=== PATIENT | female | born 1960 | race Hispanic/Latino ===

== ENCOUNTER 2016-09-27 20:17 | Emergency (ER) | payer MEDICAID, MEDICARE ==
[~2016-09-27] VITALS: Ht 162.6 cm; Wt 75.0 kg
[~2016-09-27 20:17] MED LIST: FLUO10CA20 PO; LEVE500T76 PO; NPR250T1 PO; TRAZ50TA52 PO
[2016-09-27 20:32] VITALS: BP 115/61; PULSE 70; RESP 13; O2SAT 96
--- NOTE | 2016-09-27 20:35 | ED.REPORT ---
HPI-General Illness Date of Service September 27, 2016 ED Provider: Aaron Chatman MD Pt is a 56 y/o female w/ a hx of seizure disorder presenting to the ED via EMS due to seizure which occurred prior to arrival. The seizure today was different than normal because this episode lasted almost 30 minutes, her entire body was shaking. The seizure was similar in appearance to previous seizures though seemed to last longer. She normally takes Levetiracetam 500 mg BID but did not take it this morning because she ran out. She was unresponsive during the episode and was post-ictal afterwards. She is currently GCS 15 with only complaint of headache. Family members state that when they were carrying her to the car in her postictal state that they may have dropped her causing her to strike her head on the sidewalk. Nursing Notes Stated Complaint: SEIZURE Chief Complaint: Seizure Nursing Notes Reviewed: Yes Allergies: Coded Allergies: No Known Allergies (Unverified Allergy, Unknown, 08/23/15) Scheduled Fluoxetine (Fluoxetine) 10 Mg Capsule 10 MG PO DAILY Levetiracetam (Levetiracetam) 500 Mg Tab.er.24h 500 MG PO BID Levetiracetam (Levetiracetam) 500 Mg/5 Ml Solution 500 MG PO BID Naproxen-Expunged Drug, Do Not Renew! (Naprosyn-Expunged Drug, Do Not Renew!) 250 Mg Tab 250 MG PO PRN Trazodone-Expunged Drug, Do Not Renew! (Trazodone-Expunged Drug, Do Not Renew!) 50 Mg Tablet 50 MG PO HS General Time Seen by MD: 20:20 Chief Complaint Seizure Hx Obtained From: Patient, EMS Arrived By: Ambulance Sudden in Onset?: Yes Onset Occurred: Just prior to arrival Symptom Duration: 16 - 30 minutes Location: : Head Quality: Aching Severity: Current: Mild Severity: Maximum: Moderate Past Medical History Past Medical History Notes: Melinda Santiago (Neuro) Dr. Mark Dorantes (Neuro, most recent) Past Medical History seizures (started 2013) Past Surgical History Right knee surgery Family History Reviewed, not relevant Smoking History Never Smoker Social History Alcohol Use: Denies alcohol use Drug Use: Denies drug use Ambulatory Status Independent Review of Systems Full Review of Systems Constitutional: Denies: Chills, Fever Respiratory: Denies: Non-productive cough, Shortness of breath Cardiovascular: Denies: Chest pain, Dyspnea on exertion Neurologic: Reports: Headache, Seizure, Denies: Focal weakness, Numbness Complete sys rev & neg: except as marked. Physical Exam Vital Signs Vital Signs Date Time Temp Pulse Resp B/P Pulse Ox O2 Delivery O2 Flow Rate FiO2 09/27/16 23:17 36.3 78 18 122/60 98 Room Air 09/27/16 21:32 78 18 122/60 98 Room Air 09/27/16 20:32 36.3 70 13 115/61 96 Room Air Initial VS: Reviewed, Vital signs normal Head / Eyes: Atraumatic, Normocephalic, PERRL ENT: Mucous membranes moist, Conjunctiva normal, No scleral icterus Neck: Supple, Full range of motion Respiratory: Breath sounds normal, Clear to auscultation, No respiratory distress Cardiovascular: Regular rate & rhythm, Heart sounds normal, Intact distal pulses Abdomen / GI: Soft, Non-tender, No guarding, No rebound, No distention Extremities: Vascular intact, Neuro intact, No swelling, No tenderness Skin: Warm, Dry, No cyanosis Psychiatric: Mood/affect normal, Behavior normal, Normal thought content General/Constitutional: Awake, Alert, No acute distress, Cooperative, Not toxic appearing Neurologic: Oriented X3, Speech NL, No motor deficits, No sensory deficits, CN II - XII intact, Cerebellar NL, Memory NL, Gait NL Interpretation & Diagnostics CT Head Interpretation No acute intracranial abnormality Re-Eval/Medical Decision Med Decision/Clinical Course Pt is a 56 y/o female w/ a hx of seizure disorder presenting to the ED via EMS due to seizure which occurred prior to arrival. The seizure today was different than normal because this episode lasted almost 30 minutes, her entire body was shaking. The seizure was similar in appearance to previous seizures though seemed to last longer. She normally takes Levetiracetam 500 mg BID but did not take it this morning because she ran out. She was unresponsive during the episode and was post-ictal afterwards. She is currently GCS 15 with only complaint of headache. Family members state that when they were carrying her to the car in her postictal state that they may have dropped her causing her to strike her head on the sidewalk. Here in the emergency department the patient is afebrile with stable vital signs and in no apparent distress. She is completely neurologically intact without any evidence of significant head trauma. Blood glucose is within normal limits. Head CT demonstrate no acute intracranial process. I gave her her normal dose of levetiracetam. She was monitored for several hours and demonstrated no ongoing or recurrent seizure activity. Given that her seizure occurred in the setting of not taking her anti -epileptic medications I suspect that medication noncompliance is the cause of her seizure today. There is no physical exam evidence or history suggestive of acute bacterial meningitis or encephalitis. I do not feel that further workup is immediately indicated. Patient has known seizure history with breakthrough seizure in the setting of not taking her meds. I prescribed her 30 day supply of her levetiracetam and advised her to follow-up with her physician and neurologist. At this time, she is at her baseline state and I feel that she is appropriate for discharge. Prior to discharge follow-up and return precautions were reviewed in detail with the patient who verbalized understanding and agreement with the plan. The patient was discharged in stable condition. Time of Eval: 23:04 Patient Status: Condition resolved, Complete relief Evaluation: Mental status normal, Neurologic nonfocal Re-Evaluation/Progress Note: Pt rechecked. Informed pt of plan for treatment. Pt understands and agrees with plan for treatment. F/U instructions and RTER warnings given. All questions addressed. Counseled Regarding: Diagnosis, Lab results, Need for follow-up, When/why to return to ED Discharge & Departure Primary Impression: Seizure Additional Impressions: Noncompliance with medication regimen Head trauma Encounter type: initial encounter Qualified Code: S09.90XA - Unspecified injury of head, initial encounter Headache Headache type: unspecified Headache chronicity pattern: unspecified pattern Intractability: not intractable Qualified Code: R51 - Headache Disposition: Home Discharge Condition All VS Reviewed: Yes Condition: Stable Patient Instructions: Recurrent Seizures in Adults (ED) Additional Instructions: Thank you for seeking care at the emergency room. It is difficult for us to make definitive diagnoses in the ED but we believe that you are experiencing a seizure related to not taking the seizure medication. Our primary goal today in the ED was to evaluate you for any life-threatening conditions. Your evaluation was reassuring. The CT scan of your head was normal. You will be discharged with a prescription for 30 days of your seizure medication. Take these as directed and have them refilled by your primary care doctor or neurologist in the future. You should follow-up with your primary doctor and neurologist in the next week. You should return to the ED immediately if you develop fever, confusion, headache, increased numbness, weakness, another seizure, vomiting, or any other concerning signs or symptoms. Thank you for letting us partake in your care today. Referrals: Mark Lee DO (PCP) [facility] Attestation Portions of this note were transcribed by Osmany Bob. I, Dr. Chatman personally performed the history, physical exam and medical decision-making; I reviewed and confirmed the accuracy of the information in the transcribed note. Signed by Maura Recinos, 09/27/16 - [id number] copies to: Mark Lee Beck O MD September 27, 2016 20:35 OSMANY BOB September 27, 2016 22:04
[2016-09-27 21:32] VITALS: BP 122/60; PULSE 78; RESP 18; O2SAT 98
[2016-09-27] MEDS ORDERED: LEVE500S7 PO (22:58)
[2016-09-27] MEDS ORDERED: levETIRAcetam 500 mg Tablet PO ONE (23:00)
[2016-09-27 23:17] VITALS: BP 122/60; PULSE 78; RESP 18; O2SAT 98
--- NOTE | 2016-09-28 08:30 | DRSVH ---
PROCEDURE: CT BRAIN WITHOUT CONTRAST ([id number]) INDICATIONS: SUAZO, Sz TECHNIQUE: Noncontrast 4.5 mm thick angled axial sections acquired from the foramen magnum to the vertex, with c oronal reformats. COMPARISON: [facility], CT, CT BRAIN WO CON, 08/23/2015, 21:36. FINDINGS: Image quality: Excellent. CSF spaces: Basal cisterns are patent. No extra-axial fluid collections. Ventricles are normal in size and shape. Brain: No midline shift. No intracranial masses or hemorrhage. Champagne-white matter interface is norm al. Skull and face: Calvarium and visualized facial bones are intact, without suspicious lesions. Sinuses: Visualized sinuses and mastoids are clear. IMPRESSION: 1. No acute intracranial process. Dictated by: Christie Elena M.D. on 09/28/2016 at 8:28 Approved by: Christie Elena M.D. on 09/28/2016 at 8:29
== END 2016-09-27 23:18 | disposition home or self-care (01) ==
LOC: SED 20:17
DX: R56.9 Unspecified convulsions (principal); S09.90XA Unspecified injury of head, initial encounter; Z91.14 Patient's other noncompliance with medication regimen; W04.XXXA Fall while being carried or supported by other persons, initial encounter; Y93.89 Activity, other specified; Y99.8 Other external cause status; Y92.019 Unspecified place in single-family (private) house as the place of occurrence of the external cause